=== PATIENT | male | born 1985 | race Caucasian/White ===

== ENCOUNTER 2018-06-19 01:13 | Emergency (ER) | payer SELFPAY ==
[~2018-06-19] VITALS: Ht 172.7 cm; Wt 64.9 kg
[2018-06-19] MEDS ORDERED: IBU800 MG PO (01:21)
[2018-06-19] MEDS ORDERED: CYCLOBENZAPRINE10 MG PO (01:21)
[2018-06-19] MEDS ORDERED: PREDNISONE50 MG PO (01:21)
== END 2018-06-19 02:15 | disposition home or self-care (01) ==
LOC: ED 01:13
DX: M79.18 Myalgia, other site (principal); M54.6 Pain in thoracic spine; X58.XXXA Exposure to other specified factors, initial encounter; Y93.89 Activity, other specified; Y92.89 Other specified places as the place of occurrence of the external cause; Y99.8 Other external cause status

== ENCOUNTER 2023-09-04 10:08 | Emergency (ER) | payer OTHER ==
[~2023-09-04 10:08] MED LIST: CYCLOBENZAPRINE10 MG PO; IBU800 MG PO; PREDNISONE50 MG PO
[2023-09-04] MEDS ORDERED: NAPROSYN500 MG PO (12:23)
[2023-09-04] MEDS ORDERED: METHOCARBAMOL500 M1 PO (12:23)
[2023-09-04] MEDS ORDERED: METHOCARBAMOL 750 MG TAB PO ONE (12:25)
[2023-09-04] MEDS ORDERED: NAPROXEN 250 MG TAB PO ONE (12:25)
== END 2023-09-04 12:35 | disposition home or self-care (01) ==
LOC: ED 10:08
DX: S46.912A Strain of unspecified muscle, fascia and tendon at shoulder and upper arm level, left arm, initial encounter (principal); M25.511 Pain in right shoulder; F17.200 Nicotine dependence, unspecified, uncomplicated; V89.2XXA Person injured in unspecified motor-vehicle accident, traffic, initial encounter; Y93.I9 Activity, other involving external motion; Y92.89 Other specified places as the place of occurrence of the external cause; Y99.8 Other external cause status

== ENCOUNTER 2023-11-09 14:31 | Emergency (ER) | payer SELFPAY ==
[~2023-11-09] VITALS: Ht 175.2 cm; Wt 61.2 kg
[~2023-11-09 14:31] MED LIST changes: +METHOCARBAMOL500 M1 PO; +NAPROSYN500 MG PO
[2023-11-09] MEDS ORDERED: AMOX-CLAV 875-1 EACH PO (15:08)
== END 2023-11-09 15:14 | disposition home or self-care (01) ==
LOC: ED 14:31
DX: K04.7 Periapical abscess without sinus (principal); R68.84 Jaw pain

== ENCOUNTER 2024-02-22 08:09 | Emergency (ER) | payer MEDICAID ==
[~2024-02-22] VITALS: Ht 175.2 cm; Wt 65.8 kg
[~2024-02-22 08:09] MED LIST changes: +AMOX-CLAV 875-1 EACH PO
[2024-02-22] MEDS ORDERED: PENICILLIN VK500 MG PO (08:19)
[2024-02-22] MEDS ORDERED: NAPROSYN500 MG PO (08:19)
[2024-02-22] MEDS ORDERED: Ketorolac Tromethamine 60 MG/2 ML VIAL IM ONE (08:25)
[2024-02-22] MEDS ORDERED: Acetaminophen/Hydrocodone 5 MG/325 MG TABLET PO ONE (08:25)
[2024-02-22] MEDS ORDERED: PENICILLIN V POTASSIUM 500 MG TAB PO ONE (08:25)
== END 2024-02-22 08:57 | disposition home or self-care (01) ==
LOC: ED 08:09
DX: K04.7 Periapical abscess without sinus (principal)